=== PATIENT | female | born 1975 | race American Indian/Alaskan Native ===

== ENCOUNTER 2017-10-08 08:26 | Inpatient (IN) | payer OTHER ==
[2017-10-08] MEDS ORDERED: REGLAN IV PRN (09:11)
[2017-10-08] MEDS ORDERED: LACTATED RINGERS 1,000 ML IV SCH ×2 (10:00→11:30)
[2017-10-08] MEDS ORDERED: XYLOCAINE MPF 2% ONE (10:41)
[2017-10-08] MEDS ORDERED: ZEMURON IV ONE (10:41)
[2017-10-08] MEDS ORDERED: DIPRIVAN 10 MG/ML IV ONE (10:42)
[2017-10-08] MEDS ORDERED: SUBLIMAZE ONE (10:42)
--- NOTE | 2017-10-08 11:23 | Anesthesia Consultation ---
Anesthesia Consult and Med Hx Date of service: 10/08/17 - Airway Anesthetic Teeth Evaluation: Good ROM Head & Neck: Adequate Mental/Hyoid Distance: Adequate Mallampati Class: Class II Intubation Access Assessment: Good - Pulmonary Exam CTA: Yes - Cardiac Exam Cardiac Exam: No Murmur - Pre-Operative Health Status ASA Pre-Surgery Classification: ASA1 Proposed Anesthetic Plan: General
--- NOTE | 2017-10-08 11:24 | Anesthesia Day of Surgery ---
Anesthesia Day of Surgery - Day of Surgery Patient Examined: Yes Patient H&P Reviewed: Yes Patient is NPO: Yes
[2017-10-08] MEDS ORDERED: APRESOLINE IV PRN (11:30)
[2017-10-08] MEDS ORDERED: PEPCID IV NR (11:30)
[2017-10-08] MEDS ORDERED: MYLICON PO PRN (11:30)
[2017-10-08] MEDS ORDERED: FLAGYL 500 MG/100 ML 500 MG/100 ML BAG IV NR (11:30)
[2017-10-08] MEDS ORDERED: ANCEF/STERILE WATER 2 GM/20 ML 2 GM/20 ML SYRINGE IV NR (11:30)
[2017-10-08] MEDS ORDERED: VERSED IV NR (11:30)
[2017-10-08] MEDS ORDERED: TRANSDERM-SCOP TD NR (11:30)
[2017-10-08] MEDS ORDERED: ZOFRAN IV PRN (11:30)
[2017-10-08] MEDS ORDERED: NORCO PO PRN (11:30)
[2017-10-08] MEDS ORDERED: LOVENOX SUB-Q SCH (12:00)
[2017-10-08] MEDS ORDERED: MARCAINE 0.5% 30 ML INFILTRATI ONE (12:26)
[2017-10-08] MEDS ORDERED: XYLOCAINE 1% 20 mL ONE (12:26)
[2017-10-08 12:38] LABS: Bilirubin,Urine NEG (Negative); Blood,Urine NEG (Negative); Ketones,Urine TR mg/dL (Negative); Leukocyte Esterase,Urine NEG (Negative); Mucus,Urine 1+ /HPF; Nitrite,Urine NEG (Negative); Protein,Urine <15 mg/dL mg/dL (Negative); RBC,Urine < 1.0 /HPF (0.0-6.0); Urobilinogen,Urine < 2.0 mg/dL (<2.0)
[2017-10-08] MEDS ORDERED: MARCAINE 0.5% INFILTRATI ONE (12:45)
[2017-10-08] MEDS ORDERED: NACL 0.9% IR ONE (12:45)
[2017-10-08] MEDS ORDERED: XYLOCAINE 1% 20 mL INFILTRATI ONE (12:45)
[2017-10-08] MEDS ORDERED: NEO SYNEPHRINE/NS Syringe(OR USE) IV ONE (13:29)
[2017-10-08] MEDS ORDERED: ROBINUL ONE (14:16)
[2017-10-08] MEDS ORDERED: NEOSTIGMINE ONE (14:16)
[2017-10-08] MEDS ORDERED: DILAUDID ONE (14:16)
[2017-10-08] MEDS ORDERED: DECADRON ONE (14:20)
[2017-10-08] MEDS ORDERED: ZOFRAN ONE (14:20)
[2017-10-08] MEDS: MORPHINE IV PRN ×4 (14:55→20:55)
[2017-10-08] MEDS: TORADOL IV PRN (15:39)
--- NOTE | 2017-10-08 16:05 | Post Anesthesia Evaluation ---
- Post Anesthesia Evaluation Patient Participated: Yes Airway Patent: Yes Stable Respiratory Function: Yes Nausea/Vomiting: No Temp > 96.8F: Yes Pain Manageable: Yes Adequeate Hydration: Yes Anesthesia Complications: No
[2017-10-08] MEDS ORDERED: PROVENTIL IH PRN (23:48)
[2017-10-09] MEDS: TORADOL IV PRN (04:05)
[2017-10-09 05:15] LABS: Basophils % (Auto) 0.3 % (0.0-1.8); Eosinophils % (Auto) 0.3 % (0.0-4.3); Hematocrit 23.7 % (30.3-42.9); Hemoglobin 7.2 gm/dl (10.1-14.3); Mean Corpuscular HGB Conc 31 % (30-34); Mean Corpuscular Hemoglobin 20 pg (28-32); Mean Corpuscular Volume 66 fl (79-97); Platelet Count 212 K/mm3 (140-440); Red Blood Count 3.61 M/mm3 (3.65-5.03); Red Cell Distribution Width 21.5 % (13.2-15.2); White Blood Count 8.7 K/mm3 (4.5-11.0)
[2017-10-09 05:37] LABS: Alanine Aminotransferase 33 units/L (7-56); Albumin 3.3 g/dL (3.9-5); Alkaline Phosphatase 86 units/L (35-129); Anion Gap 16 mmol/L; BUN/Creatinine Ratio 14; Blood Urea Nitrogen 7 mg/dL (7-17); Calcium 8.5 mg/dL (8.4-10.2); Carbon Dioxide 25 mmol/L (22-30); Glucose 96 mg/dL (65-100); Potassium 3.8 mmol/L (3.6-5.0); Sodium 138 mmol/L (137-145); Total Protein 6.5 g/dL (6.3-8.2)
[2017-10-09 09:00] VITALS: BP 109/72
[2017-10-09] MEDS ORDERED: LOVENOX SUB-Q SCH (10:00)
--- NOTE | 2017-10-09 11:49 | Discharge Summary ---
Providers - Providers Date of Admission: 10/08/17 08:27 Attending physician: FÉLIX UP Hospitalization Condition: Good Procedures: Bariatric revision surgery Hospital course: 42 y.o. F presented for bariatric revision surgery. She tolerated the procedure well. On POD 1 she was able to tolerate liquids, she denied n/v. She ambulated well and her pain was controlled. Per office records, her preoperative Hgb was 8.3 on 10/03/17. Her Hbg on POD 1 was 7.2. This drop is Hgb is most likely dilutional. She has a hx of anemia. She had no signs of acute bleeding such as tachycardia or hypotenson. She was discharged on POD 1. Disposition: - TO HOME OR SELFCARE Core Measure Documentation - Palliative Care Palliative Care/ Comfort Measures: Not Applicable - Core Measures Any of the following diagnoses?: none Exam - Physical Exam Narrative exam: Gen: A+Ox3 cardio regular resp: equal rise and fall of chest abd: soft, tender at incision sites. obese, dressings cdi. no rebound no guarding - Constitutional Vitals: Temp Pulse Resp BP Pulse Ox 98.1 F 72 18 109/72 99 10/09/17 08:43 10/09/17 08:43 10/09/17 08:43 10/09/17 08:43 10/09/17 08:43 Plan Activity: other (no lifting >15lbs for 6 weeks. no crunches for 6 weeks. ) Diet: clear liquids (sugar free clears ) Wound: keep clean and dry Additional Instructions: Follow up for wound check. Continue to walk often and use IS. Drink 64oz of fluids and day and goal protein is 60g. Follow up with: KIYA HAYES [Other] - 7 Days
== END 2017-10-09 15:00 | disposition home or self-care (01) | DRG 327 ==
LOC: 3A 08:27 → 3B-SURG 14:57
PROVIDERS: ADMIT Specialist; ATTEND Specialist
PROC: 0D1 Gastrointestinal System, Bypass (ICD-10-PCS; principal; 2017-10-08)
PROC: 0BQT4ZZ Repair Diaphragm, Percutaneous Endoscopic Approach (ICD-10-PCS; 2017-10-08)
DX: K91.89 Other postprocedural complications and disorders of digestive system (principal); R71.0 Precipitous drop in hematocrit; Y83.2 Surgical operation with anastomosis, bypass or graft as the cause of abnormal reaction of the patient, or of later complication, without mention of misadventure at the time of the procedure; K44.9 Diaphragmatic hernia without obstruction or gangrene; E66.01 Morbid (severe) obesity due to excess calories; K21.9 Gastro-esophageal reflux disease without esophagitis; Z68.34 Body mass index [BMI] 34.0-34.9, adult; Z80.42 Family history of malignant neoplasm of prostate; Y92.89 Other specified places as the place of occurrence of the external cause; Z80.8 Family history of malignant neoplasm of other organs or systems
CPT/HCPCS: 36415; 80053; 81001; 81025; 83735; 85025; C9250; J0690; J1100; J1170; J1650; J1885; J2250; J2270; J2370; J2405; J2704; J2710; J3010; J7120